=== PATIENT | male | born 1955 | race Caucasian/White ===

== ENCOUNTER 2020-05-16 11:02 | Outpatient (CLI) | payer MEDICARE, SELFPAY ==
--- NOTE | ~2020-05-16 | XR_ITS ---
XR scapula RT DATE: 05/16/2020 11:28 INDICATION: Recent fall, posterior shoulder pain, right arm tingling and pain TECHNIQUE: AP and lateral views of right scapula COMPARISON: None FINDINGS: There is diffuse osteopenia. No fracture or dislocation or bone destruction. Normal alignme nt at the acromioclavicular and glenohumeral joints. IMPRESSION: Osteopenia Reviewed, dictated and finalized at location A. IMPRESSION: Osteopenia
--- NOTE | ~2020-05-16 | XR_ITS ---
XR cervical spine min 6V DATE: 05/16/2020 11:28 INDICATION: Right arm tingling and pain TECHNIQUE: AP, open-mouth, bilateral oblique views. Lateral views in neutral, flexion and extension. COMPARISON: None FINDINGS: There is reversal of upper and mid cervical spine curvature. C1 and C2 are normally aligned and the odontoid process is intact. No fracture is evident. No prevert ebral soft tissue swelling. There is severe degenerative disc disease and approximately 1 mm retrolisthesis at C3-4; the retrolis thesis is stable in flexion, increased to 2 mm in extension. There is more prominent up to at least 3 mm retrolisthesis at C4-5 in neutral and extension, reduced to 1 mm in flexion. There is moderate loss of interspace height at C4-5. There is minimal anterolisthesis at C6-7. There is uncovertebral joint spurring, most prominent at C4-5. Degenerative change at the apophyseal joints. IMPRESSION: Extensive degenerative changes; no fracture Reviewed, dictated and finalized at location A.
--- NOTE | ~2020-05-16 | XR_ITS ---
XR shoulder RT min 2V DATE: 05/16/2020 11:28 INDICATION: Recent fall. Posterior right shoulder pain. Right arm tingling and pain. TECHNIQUE: 4 views COMPARISON: None FINDINGS: There is diffuse osteopenia. No fracture or dislocation, periosteal reaction or bone destru ction. No abnormal soft tissue calcification of the right shoulder. IMPRESSION: Osteopenia Reviewed, dictated and finalized at location A. IMPRESSION: Osteopenia
== END 2020-05-16 11:03 | disposition home or self-care (01) ==
LOC: ANHIMG 11:09
PROVIDERS: PCP Emergency Medicine; Visit Provider Emergency Medicine
DX: R20.2 Paresthesia of skin (principal); M85.811 Other specified disorders of bone density and structure, right shoulder
CPT/HCPCS: 72052; 73010; 73030

== ENCOUNTER 2021-09-24 09:08 | Outpatient (CLI) | payer MEDICARE, SELFPAY ==
--- NOTE | ~2021-09-24 | US_ITS ---
EXAMINATION: US carotid duplex BI DATE: 09/24/2021 10:29 INDICATION: Dizziness TECHNIQUE: Grayscale, color Doppler, and pulsed Doppler images of the cervical carotid arteries were obtained. The degree of vessel stenosis is placed in one of the following categories: normal, <50%, 5 0-69%, >=70% but less than near-occlusion, near-occlusion, or total occlusion. Note that percent sten osis relative to normal distal artery lumen diameter is indirectly measured from velocity measurement s as described by Jason, et al. Radiology 2003; 229:340-346. Notes: Normal: Peak systolic velocity <125 centimeters/sec and no plaque <50%. Peak systolic velocity <125 ( EDV <40; ICA/CCA PSV ratio <2.0; used these factors only a tandem lesions or low cardiac output or co ntralateral disease) 50-69 %: PSV 125-230 (EDV 40-100; ratio 2-4) >= 70% but less than near occlusion: PSV greater than 230 (EDV > 100; ratio> 4.0) Near Occlusion: PSV that is variable; markedly narrowed lumen Occlusion: Absent flow on color/spectral Doppler and no lumen on sharma scale. COMPARISON: None. FINDINGS: RIGHT: The right common carotid artery (CCA) peak systolic velocity (PSV) is 153 cm/s. The right internal ca rotid artery (ICA) PSV is 110 cm/s. The right ICA end-diastolic velocity (EDV) is 34 cm/s. The right ICA/CCA PSV ratio is 0.7. The external carotid artery (ECA) PSV is 90 cm/s. There is antegrade flow i n the right vertebral artery. LEFT: The left CCA PSV is 124 cm/s. The left ICA PSV is 91 cm/s. The left ICA EDV is 33 cm/s. The left ICA/ CCA PSV ratio is 0.7. The ECA PSV is 107 cm/s. The left vertebral artery is not well visualized for evaluation. IMPRESSION: 1. Less than 50% stenosis in the right internal carotid artery by sonographic criteria. 2. Less than 50% stenosis in the left internal carotid artery by sonographic criteria. Left vertebral artery not adequately visualized. Reviewed, dictated and finalized at location A. DERETTE ATTENDANT IMPRESSION: 1. Less than 50% stenosis in the right internal carotid artery by sonographic c riteria. 2. Less than 50% stenosis in the left internal carotid artery by sonographic cr iteria. Left vertebral artery not adequately visualized.
== END 2021-09-24 09:09 | disposition home or self-care (01) ==
LOC: ANHIMG 09:14
PROVIDERS: PCP Emergency Medicine; Visit Provider Emergency Medicine
DX: R42 Dizziness and giddiness (principal); I65.23 Occlusion and stenosis of bilateral carotid arteries
CPT/HCPCS: 93880

== ENCOUNTER 2021-10-07 13:58 | Outpatient (CLI) | payer MEDICARE, SELFPAY ==
--- NOTE | ~2021-10-07 | MR_ITS ---
EXAMINATION: MR brain/brain stem wo/w con DATE: 10/07/2021 15:18 INDICATION: Slurred speech. TECHNIQUE: Magnetic resonance imaging (MRI) of the brain and brainstem was performed without and with 10 mL MultiHance intravenous contrast. Sequences included sagittal and axial T1-weighted FSE, axial diffusion-weighted FS EPI, axial T2*-weighted GRE, axial T2-weighted FLAIR Propeller, and axial T2-we ighted Propeller. Postcontrast sequences included axial, sagittal, and coronal T1-weighted FSE. Appar ent diffusion coefficient (ADC) maps were created. COMPARISON: Brain MRI 11/10/2014 FINDINGS: There is chronic encephalomalacia in lateral aspect of left temporal lobe. There are scatte red areas of nonspecific increased T2-weighted signal intensity in the cerebral white matter. There i s no intracranial hemorrhage, acute infarction, or abnormal intracranial mass lesion. The ventricles are normal in size. There are likely changes of ocular lens replacement surgeries. There is mild muco oliver thickening in the ethmoid sinuses. The mastoid air cells are normal. IMPRESSION: 1. Chronic encephalomalacia in lateral aspect of left temporal lobe. 2. Worsened moderate nonspecific cerebral white matter disease, which likely represents chronic small vessel ischemic disease. Reviewed, dictated and finalized at location A. OMER EXPERIENCE LEADER IMPRESSION: 1. Chronic encephalomalacia in lateral aspect of left temporal lobe. 2. Worsened moderate nonspecific cerebral white matter disease, which likely re presents chronic small vessel ischemic disease.
[2021-10-07 14:44] LABS: Estimated Glomerular Filt Rate > 60
== END 2021-10-07 13:59 | disposition home or self-care (01) ==
PROVIDERS: PCP Emergency Medicine; Visit Provider Emergency Medicine
DX: R42 Dizziness and giddiness (principal); G93.89 Other specified disorders of brain; R90.82 White matter disease, unspecified
CPT/HCPCS: 70553; A9577

== ENCOUNTER 2023-09-07 09:04 | Day surgery (SDC) | payer MEDICARE, SELFPAY ==
[2023-09-02 09:15] VITALS: BMI 20.2
--- NOTE | 2023-09-07 07:27 | P.PNAN_ITS ---
Anes - Initial Pre Proc Eval Procedure: Operation Date: 09/07/23 14:00 Proposed Procedures p Esophagogastroduodenoscopy - Daniele Parham MD s Colonoscopy - Daniele Parhma MD Date/Time: 09/07/23 07:27 Surgeon: Daniele Parham MD Pre Op Diagnosis: Iron Deficiency Anemia Patient Data Age: 68 Gender: M Height: 1.6 m Weight: 52 kg Allergies Allergy/AdvReac Type Severity Reaction Status Date / Time No Known Allergies Allergy Verified 09/07/23 09:37 Home Medications Medication Instructions Recorded Confirmed Type gabapentin 100 mg capsule 100 mg PO BID 09/02/23 09/02/23 History omeprazole 20 mg capsule,delayed 20 mg PO DAILY #30 caps 09/07/23 09/07/23 Rx release Patient hx anesthesia problems: none Family hx anesthesia problems: none Results Review: All pre-operative results and documents have been reviewed as part of the pre- operative evaluation. [facility] Past Medical History Medical History (Updated 09/07/23 @ 13:52 by Tato Choi DO) Anemia Asbestosis GERD (gastroesophageal reflux disease) Hepatitis C History of tuberculosis Iron deficiency anemia TIA (transient ischemic attack) Social History Social History Smoking packs per day: 2 Smoking cigarettes per day: 40.0 Years smoked: 30 Smoking pack-years: 60.00 Smoking status: Former smoker Tobacco type: cigarettes Smoking end date: 10/05/99 Alcohol intake: former Substance use: never Substance use type: does not use Living arrangements: with friend(s) Spiritual care concerns: No Anes - Eval Final PreProcedure Day of Procedure 09/07/23 07:27 Patient weight: normal Heart: regular rate and rhythm Lungs: clear to auscultation and normal air movement Airway: Mallampati scale class II Neurological: alert and oriented Last oral intake: >/= 8 hours ASA classification: III Emergent: no Anesthetic plan: proceed Anesthesia type and monitoring: general GIVS and standard monitoring Results Review: All pre-operative results and documents have been reviewed as part of the pre- operative evaluation. Informed Consent: The patient's anesthetic plan and its attendant risks and benefits were discussed with the patient/family/POA. Questions were solicited and answers provided to the satisfaction of the patient/family/POA.
[2023-09-07 09:38] VITALS: BP 147/90; PULSE 95; RESP 16; TEMP 36.8; O2SAT 99
[2023-09-07] MEDS: LACTATED RINGERS 1,000 ML 150 ML IV CONT (09:45)
--- NOTE | 2023-09-07 10:47 | PM.HPGS ---
History of Present Illness History of Present Illness Consent: Risks, benefits, and alternatives have been discussed and questions answered. Patient agrees to proceed with procedure. Chief complaint: Iron Deficiency Anemia Narrative: Kevin Isabel is a 68 year old male with lamar, denies overt gib, he thinks that had colonoscopy 2 years ago Review of Systems Constitutional: Constitutional: Denies headache(s) and Denies weakness Eyes: Eyes: Denies blurry vision ENT: Reports Normal hearing present, Denies headache(s) and Denies neck pain Cardiovascular: Cardiovascular: Denies chest pain and Denies dyspnea Respiratory: Respiratory: Denies dyspnea Gastrointestinal: Gastrointestinal: Reports no additional gastrointestinal complaints Genitourinary: Genitourinary: Denies dysuria Musculoskeletal: Musculoskeletal: Denies neck pain Integumentary/Breasts: Skin/Breast: Denies dry skin Neurologic: Reports Normal hearing present, Denies headache(s) and Denies weakness Psychiatric: Psychiatric: Denies anxiety Endocrine: Endocrine: Denies change in body appearance Hematologic/Lymphatic: Hematologic/Lymphatic: Denies easy bleeding Allergic/Immunologic: Allergic/Immunologic: Denies urticaria PMF Past Medical History Medical History (Updated 09/07/23 @ 10:47 by Daniele Parham MD) Anemia Asbestosis GERD (gastroesophageal reflux disease) History of tuberculosis Iron deficiency anemia TIA (transient ischemic attack) Social History Social History Smoking packs per day: 2 Smoking cigarettes per day: 40.0 Years smoked: 30 Smoking pack-years: 60.00 Smoking status: Former smoker Tobacco type: cigarettes Smoking end date: 10/05/99 Alcohol intake: former Substance use: never Substance use type: does not use Living arrangements: with friend(s) Spiritual care concerns: No Meds Home Medications and Allergies Home Medications Medication Instructions Recorded Confirmed Type omeprazole 20 mg capsule,delayed 20 mg PO DAILY 08/26/23 09/02/23 History release gabapentin 100 mg capsule 100 mg PO BID 09/02/23 09/02/23 History Allergies Allergy/AdvReac Type Severity Reaction Status Date / Time No Known Allergies Allergy Verified 09/07/23 09:37 Vital Signs Vital Signs - 24 hr 09/07/23 09:38 Temperature 98.3 F Pulse Rate 95 Respiratory Rate 16 Blood Pressure 147/90 H Pulse Oximetry 99 Oxygen Delivery Room Air Exam Const: General: comfortable and no acute distress HENMT: Face/Nose/Sinus: Normal nares present Eyes: General: appearance normal, both eyes and all related structures Neck: Neck: no JVD Resp: Auscultation: clear to auscultation bilaterally Cardio: Rate: regular rate Rhythm: regular rhythm GI: Inspection: non-distended GI Palp: Yes Soft to palpation Skin: General skin exam: normal color Neuro: General: gait normal Speech: normal speech Extrem: General: normal to inspection Psych: Mental Status: mental status grossly normal Assessment and Plan Assessment and plan (1) Iron deficiency anemia: Code(s): D50.9 - Iron deficiency anemia, unspecified Status: Acute Assessment and Plan: egd and colonoscopy
[2023-09-07 11:21] VITALS: BP 87/54; PULSE 62; RESP 16; O2SAT 100
[2023-09-07 11:30] VITALS: BP 96/63; PULSE 62; RESP 16; O2SAT 100
[2023-09-07 11:40] VITALS: BP 104/67; PULSE 64; RESP 16; O2SAT 100
[2023-09-07 11:50] VITALS: BP 115/70; PULSE 64; RESP 16; O2SAT 100
--- NOTE | 2023-09-07 13:52 | WPDANESPN ---
Anes - Prog Note Post-Op Date/Time: 09/07/23 13:52 Cardiovascular status: normal Respiratory status: normal Airway patency: baseline Mental status: baseline Post-Op hydration status: normal Vital Signs: Last Vital Signs Temp 36.8 C 09/07/23 09:38 Pulse 64 09/07/23 11:50 Resp 16 09/07/23 11:50 BP 115/70 09/07/23 11:50 Pulse Ox 100 09/07/23 11:50 O2 Del Method Room Air 09/07/23 11:50 O2 Flow Rate 2 09/07/23 11:30 Pain Score (VAS): 0 I/O: Intake & Output 09/06/23 09/07/23 09/07/23 23:59 07:59 15:59 Intake Total 400 Balance 400 Post-procedural complaints: none Patient Feedback: Patient satisfied with anesthetic care. Other Findings: Patient vital signs back to baseline. Patient denies nausea and vomiting. Patient's pain under control. Patient OK for discharge.
== END 2023-09-07 12:10 | disposition home or self-care (01) ==
PROVIDERS: PCP Emergency Medicine; Visit Provider Internal Medicine Gastroenterology
PROC: 0DJ08ZZ Inspection of Upper Intestinal Tract, Via Natural or Artificial Opening Endoscopic (ICD-10-PCS; CPT 43235; principal; 2023-09-07 14:00)
PROC: 0DJD8ZZ Inspection of Lower Intestinal Tract, Via Natural or Artificial Opening Endoscopic (ICD-10-PCS; CPT 45378; 2023-09-07 14:00)
DX: D50.9 Iron deficiency anemia, unspecified (principal); K57.30 Diverticulosis of large intestine without perforation or abscess without bleeding; K64.8 Other hemorrhoids; K29.70 Gastritis, unspecified, without bleeding; K44.9 Diaphragmatic hernia without obstruction or gangrene
CPT/HCPCS: 45378; 43239

== ENCOUNTER 2023-09-08 10:59 | Outpatient (NON) | payer MEDICARE, SELFPAY | END 2023-09-08 11:00 | disposition home or self-care (01) | LOC: ANHLAB 11:03 | PROVIDERS: PCP Emergency Medicine; Visit Provider Internal Medicine Gastroenterology | DX: D50.9 Iron deficiency anemia, unspecified (principal); K21.9 Gastro-esophageal reflux disease without esophagitis | CPT/HCPCS: 88305 ==

== ENCOUNTER 2023-12-29 08:55 | Outpatient (CLI) | payer MEDICARE, SELFPAY ==
--- NOTE | ~2023-12-29 | CT_ITS ---
EXAMINATION: CT abdomen pelvis wo/w con DATE: 12/29/2023 09:42 INDICATION: Hematuria. TECHNIQUE: Computed tomography (CT) of the abdomen and pelvis was performed without and with intraven ous contrast using a total of 130 mL Omnipaque-350 intravenous contrast with a double-bolus technique for simultaneous opacification of the renal parenchyma and renal collecting system. Automated exposu re control and iterative reconstruction technique were employed. The dose-length product was 488.98 m Gy-cm. COMPARISON: CT abdomen and pelvis 03/26/2019 FINDINGS: The visualized portions of the lung bases demonstrate mild atelectasis. Emphysema is noted. No pleural effusion. The heart size is normal. There are coronary artery calcifications. No pericard ial effusion. There is a small sliding hiatal hernia. The liver, gallbladder, spleen, pancreas, adren al glands, and right kidney are normal. There are cysts in left kidney measuring up to 4.5 cm. The ur eters are well opacified and are normal. There are bilateral inguinal hernias containing fat. There i s diverticulosis of the colon without evidence of diverticulitis. There are no dilated loops of bowel . There is calcified atherosclerosis of the aorta and many of the other arteries. There are no pathol ogically enlarged lymph nodes. There is no free intraperitoneal fluid. There is mild thoracic and lum bar spondylosis. IMPRESSION: 1. No etiology for hematuria. Reviewed, dictated and finalized at location A.
[2023-12-29 09:20] LABS: Estimated Glomerular Filt Rate > 60
== END 2023-12-29 08:56 ==
LOC: GOSHIMG 08:56
PROVIDERS: PCP Emergency Medicine; Visit Provider Urology
DX: R31.29 Other microscopic hematuria (principal)
CPT/HCPCS: 74178; Q9967

== ENCOUNTER 2024-12-09 06:37 | Outpatient (CLI) | payer MEDICARE, SELFPAY ==
--- NOTE | ~2024-12-09 | CT_ITS ---
EXAMINATION: CT abdomen pelvis w con DATE: 12/09/2024 07:15 INDICATION: Abdominal distention. TECHNIQUE: Computed tomography (CT) of the abdomen and pelvis was performed with 100 mL Omnipaque 350 intravenous contrast. Automated exposure control and iterative reconstruction technique were employe d. The dose-length product was 209.46 mGy-cm. COMPARISON: CT abdomen and pelvis 12/29/2023 FINDINGS: The visualized portions of the lung bases demonstrate emphysema and mild atelectasis. No pl eural effusion. The heart size is normal. There are coronary artery calcifications. No pericardial ef fusion. There is a small sliding hiatal hernia. The liver, gallbladder, spleen, pancreas, adrenal gla nds, and right kidney are normal. There are cysts in left kidney measuring up to 5.0 cm. There is a r ight inguinal hernia containing fat and a portion of the bladder. There is a left inguinal hernia con taining nonobstructed sigmoid colon. There is diverticulosis of the colon without evidence of diverti culitis. The appendix is normal. There are no pathologically enlarged lymph nodes. There is no free i ntraperitoneal fluid. There is moderate lumbar spondylosis. IMPRESSION: 1. Right inguinal hernia containing fat and a portion of the bladder. 2. Left inguinal hernia containing nonobstructed sigmoid colon. Reviewed, dictated and finalized at location A. [facility]
--- OUTSIDE RECORDS SUMMARY | 2024-12-09 06:40 | XMS_ITS | Clinical Summary ---
Author Organization [facility] [address] [place] [id number] Care Team Providers Care Jr. Systems Administrator Name Role Phone Rachid Baca MD Primary Care Provider + [phone] Allergies No known active allergies Medications acetaminophen (TYLENOL) 325 mg tabletIndicatio ns:Pain Take 2 tablets (650 mg total) by mouth every 6 (six) hours as needed for pain 90 tablet 0 Active docusate sodium (COLACE) 100 mg capsuleIndicati ons:constipatio n Take 1 capsule (100 mg total) by mouth 2 (two) times a day as needed for constipation 60 capsule 0 Active Active Problems Problem Noted Date Diagnosed Date Stricture of anterior urethra in male 12/01/2019 Overview (12/01/2019): Added automatically from request for surgery [id number] Bladder mass 05/19/2019 Overview (05/19/2019): Added automatically from request for surgery [id number] Immunizations Immunization Administration Dates Next Due Influenza, Trivalent, High D ose, Split, Preservative Free, Intramuscular 12/20/2019 Surgical History Surgery Date Site/Laterality Comments HAND SURGERY Medical History Medical History Date Comments Back pain Hypertension Peptic ulceration Hepatitis C carrier (HCC) Family History Medical History Relation Name Comments Cancer Father Anesthesia problems Neg Hx Relation Name Status Comments Father Social History Tobacco Use Types Packs/Day Years Used Date Smoking Tobacco: Former Cigarettes Q uit: 2015 Smokeless Tobacco: Never Comments:history of 3ppd Alcohol Use Standard Drinks/Week Comments Never 0 (1 standard drink = 0.6 oz pur e alcohol) AUDIT-C Answer Date Recorded Frequency of Alcohol Consumption Never 05/18/2019 Average Number of Drinks Not on file 019 Frequency of Binge Drinking Not on file 05/05 Sex and Gender Information Value Date Recorded Sex Assigned at Not on file 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 Gender Identity Not on file Sexual Orientation Not on file Obstetrics History Last Filed Vital Signs Vital Sign Reading Time Taken Comments Blood Pressure 152/81 12/20/2019 11:05 AM CDT Pulse 70 12/20/2019 11:05 AM CDT Temperature 36.5 C (97.7 F) 12/20/2019 11:05 AM CDT Respiratory Rate 18 12/20/2019 11:05 AM CDT Oxygen Saturation 97% 12/20/2019 11:05 AM CDT Inhaled Oxygen Concentration - - Weight 47.6 kg (105 lb) 12/19/2019 2:35 PM CDT Height 160 cm (5' 3 ) 12/19/2019 2:35 PM CDT Body Mass Index 18.6 12/19/2019 2:35 PM CDT Plan of Treatment Not on file Insurance MEDICARE [facility] Address: [address] [address] [place] [address] [facility] Address: [address] [address] [place] [address] Advance Directives For more information, please contact: [phone] * Full Code (Latest Code Status on File) Date Activated Date Inactivated Comments 12/19/2019 2:33 PM 12/20/2019 6:35 PM Care Teams Jr. Systems Administrator Relationship Specialty Start Date End Date Rachid Baca MD [address] [place] [address] PCP - General Family Medicine 11/14/19
--- OUTSIDE RECORDS SUMMARY | 2024-12-09 06:40 | XMS_ITS | Patient Health Summary ---
Author Organization [facility] Address [address] [facility] [place] [address] Care Team Providers Care Tire Maintenance Technician Name Role Phone Rachid Baca MD Primary Care Provider [phone] Note from [facility],non-owned Affiliates and Associated Physician Practices is amultiple site organization consisting of ambulatory clinics and hospital sitesin [place], [place], [place] and [place]. This disclosure is being madepursuant to the Care Everywhere program and may not contain all information available regarding this patient. Last updated 18.[facility] Allergies No known active allergies Medications * Be aware that medications may not be up to date on this document. Alwaysverify current medications with the patient. * acetaminophen (TYLENOL) 500 MG tablet(Started 11/09/2017) Take 500 mg by mouth q6h PRN (Pain). Active Problems Problem Noted Date Diagnosed Date Other acute postprocedural pain 11/20/2017 Other extraarticular fractur e of lower end of right radius, subsequent encounter for closed fracture with malunion 11/20/2017 Closed fracture of lower end of right radius Other hereditary and idiopathic neuropathies 04/2017 Social History Tobacco Use Types Packs/Day Years Used Date Smoking Tobacco: Former Smokeless Tobacco: Never Alcohol Use Standard Drinks/Week Comments No 0 (1 standard drink = 0.6 oz pur e alcohol) Sex and Gender Information Value Date Recorded Sex Assigned at Not on file Gender Identity Not on file Sexual Orientation Not on file Last Filed Vital Signs Vital Sign Reading Time Taken Comments Blood Pressure 135/73 11/20/2017 12:45 PM EAR NOSE THROAT SURGEON Pulse 69 11/20/2017 12:45 PM EAR NOSE THROAT SURGEON Temperature 36.7 C (98 F) 11/20/2017 12:10 PM EAR NOSE THROAT SURGEON Respiratory Rate 16 11/20/2017 12:45 PM EAR NOSE THROAT SURGEON Oxygen Saturation 95% 11/20/2017 12:45 PM EAR NOSE THROAT SURGEON Inhaled Oxygen Concentration - - Weight 47.6 kg (105 lb) 12/03/2017 9:33 AM EAR NOSE THROAT SURGEON Height 157.5 cm (5' 2 ) 12/03/2017 9:33 AM EAR NOSE THROAT SURGEON Body Mass Index 19.2 12/03/2017 9:33 AM EAR NOSE THROAT SURGEON Procedures * XR WRIST RIGHT 3VW OR MORE(Performed 02/25/2018) Performed for Follow up * XR HAND RIGHT 3VW OR MORE(Performed 12/31/2017) * XR WRIST RIGHT 3VW OR MORE(Performed 12/03/2017) * TYPE + SCREEN PANEL(Performed 11/20/2017) * BLOOD GASES ARTERIAL(Performed 11/20/2017) * XR WRIST RIGHT 3VW OR MORE(Performed 11/05/2017) * XR SHOULDER RIGHT 2VW OR MORE(Performed 04/14/2017) * XR WRIST RIGHT 3VW OR MORE(Performed 04/09/2017) * XR WRIST RIGHT 3VW OR MORE(Performed 01/15/2017) * XR WRIST RIGHT 3VW OR MORE(Performed 10/16/2016) * XR WRIST RIGHT 3VW OR MORE(Performed 07/03/2016) Results * XR WRIST RIGHT 3VW OR MORE (02/25/2018 8:41 AM CDT) Only the most recent of7 resultswithin the time period is included. Anatomical Region Laterality Modality Wrist / Hand Radiographic Mignon ging 02/25/2018 8:49 AM CDT Impressions 02/25/2018 8:50 AM CDT IMPRESSION: Distal radial osteotomy with plate and screws, unchanged in alignment. This report was electronically signed by TATO KELLER MD on 02/25/2018 8:50 AM . Narrative 02/25/2018 8:50 AM CDT Exam: XR WRIST RIGHT 3VW OR MORE History: Z09: Follow up Comparison: 12/03/2017. Findings: A splint has been removed. There has been distal radial osteotomy with a volar plate and screws for treatment of a malunited fracture. The hardware is intact. The osseous alignment is unchanged and the osteotomy site appears healing. 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 The bones are osteopenic. Mild soft tissue swelling is noted. Mild chronic deformity of the fourth and fifth metacarpals is noted. Procedure Note Tato Keller MD - 02/25/2018 Exam: XR WRIST RIGHT 3VW OR MORE History: Z09: Follow up Comparison: 12/03/2017. Findings: A splint has been removed. There has been distal radial osteotomy with a volar plate and screws for treatment of a malunited fracture. Thehardware is intact. The osseous alignment is unchanged and the osteotomy site appears healing. 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 The bones are osteopenic. Mild soft tissue swelling is noted. Mild chronic deformity of the fourth and fifth metacarpals is noted. IMPRESSION: Distal radial osteotomy with plate and screws, unchanged in alignment. This report was electronically signed by TATO KELLER MD on02/25/2018 8:50 AM . Rehan Soto MD DIAGNOSTIC IMAGING [facility] * XR HAND RIGHT 3VW OR MORE (12/31/2017 8:40 AM CDT) Anatomical Region Laterality Modality Wrist / Hand Other Impressions 12/31/2017 9:06 AM CDT IMPRESSION: Distal radial osteotomy with a plate and screws, unchanged in alignment. This report was electronically signed by TATO KELLER MD on 12/31/2017 9:06 AM . Narrative 12/31/2017 9:06 AM CDT Exam: XR HAND RIGHT 3+ VW History: follow up Comparison: 12/03/2017 Findings: There are surgical changes of distal radial osteotomy with a plate and screws for treatment of a prior malunited fracture. The hardware is intact and the osseous alignment is unchanged. There is severe joint space narrowing between the radius and scaphoid, with subchondral sclerosis. There is mild to moderate degenerative change elsewhere in the wrist. The bones are mildly osteopenic. A splint has been removed. There is chronic deformity of the fourth and fifth metacarpals. Procedure Note Tato Keller MD - 01/09/2018 Exam: XR HAND RIGHT 3+ VW History: follow up Comparison: 12/03/2017 Findings: There are surgical changes of distal radial osteotomy with a plate andscrews for treatment of a prior malunited fracture. The hardware is intactand the osseous alignment is unchanged. There is severe joint spacenarrowing between the radius and scaphoid, with subchondral sclerosis. There is mild to moderatedegenerative change elsewhere in the wrist. The bones are mildlyosteopenic. A splint has been removed. There is chronic deformity of thefourth and fifth metacarpals. IMPRESSION IMPRESSION: Distal radial osteotomy with a plate and screws, unchanged in alignment. This report was electronically signed by TATO KELLER MD on 12/31/20179:06 AM . Rehan Soto MD DIAGNOSTIC IMAGING O [facility] * TYPE + SCREEN PANEL (11/20/2017 7:35 AM EAR NOSE THROAT SURGEON) Typem A POS [facility] Antibody Screen NEG [facility] Blood specimen (specimen) 11/20/2017 7:35 AM EAR NOSE THROAT SURGEON 11/20/2017 7:40 AM EAR NOSE THROAT SURGEON Rehan Soto MD LAB - BLOOD BANK ORD ERABLES [facility] [address] * BLOOD GASES ART (11/20/2017 7:33 AM EAR NOSE THROAT SURGEON) EPO Potassium POCT 3.7 3.5 - 4.5 mmol/L [facility] (BEAKER) Comment: Sample Type: Venous Experimental Preflight Mechanic: JENNIFER MCKEON 11/20/2017 7:33 AM EAR NOSE THROAT SURGEON Rehan Soto MD LAB - BLOOD GASES OR DERABLES [facility] ([facility]) * XR SHOULDER RIGHT 2VW OR MORE (04/14/2017 1:31 PM CDT) Anatomical Region Laterality Modality Upper Extremity Other Impressions 04/14/2017 2:14 PM CDT IMPRESSION: No acute osseous abnormality or evidence of arthritis. Dictated by Sherly Spicer M.D. ([employer]) Dr. BEL Argueta M.D. have personally reviewed and interpreted this examination/study. This report was electronically signed by BEL PITTMAN M.D. on 04/14/2017 2:14 PM . Narrative 04/14/2017 2:14 PM CDT EXAMINATION: XR SHOULDER RIGHT 2 VW MIN DATE: 04/14/2017 1:32 PM HISTORY: Pain COMPARISON: No prior study is available for comparison. FINDINGS: The osseous structures are intact and well aligned without evidence of acute fracture or dislocation. The acromioclavicular and glenohumeral joints are preserved.There is no significant soft tissue swelling. No radiopaque foreign bodies are visible. Procedure Note Bel Pittman MD - 01/01/2018 EXAMINATION: XR SHOULDER RIGHT 2 VW MIN DATE: 04/14/2017 1:32 PM HISTORY: Pain COMPARISON: No prior study is available for comparison. FINDINGS: The osseous structures are intact and well aligned without evidence ofacute fracture or dislocation. The acromioclavicular and glenohumeraljoints are preserved.There is no significant soft tissue swelling. Noradiopaque foreign bodies are visible. IMPRESSION IMPRESSION: No acute osseous abnormality or evidence of arthritis. Dictated by Sherly Spicer M.D. ([employer]) Dr. BEL Argueta M.D. have personally reviewed and interpreted thisexamination/study. This report was electronically signed by BEL PITTMAN M.D. on 04/14/20172:14 PM . Tigre Lawrence MD DIAGNOSTIC IMAGING [facility] Care Teams Tire Maintenance Technician Relationship Specialty Start Date End Date Rachid Baca MD [address] [facility] [address] [place] [address] PCP - General 01/15/17
--- OUTSIDE RECORDS SUMMARY | 2024-12-09 06:40 | XMS_ITS | Clinical Summary ---
Author Organization [facility] Address [address], [facility] [address] [place] [address] Phone Care Team Providers Care Er Physician Name Role Phone Baca Rachid Primary Care Provider [phone] Alexandro Flor MD Unavailable [phone] Allergies No known active allergies Medications omeprazole (PriLOSEC) 20 MG CAPSULE DELAYED RELEASE Take 20 mg by mouth daily. Active gabapentin (NEURONTIN) 100 MG Capsule Take 100 mg by mouth 2 times daily. 08/31/2023 Active hydrALAZINE 10 MG Tablet TAKE 1 TABLET BY MOUTH THREE TIMES DAILY WITH FOOD 12/15/2023 Active Active Problems Problem Noted Date Diagnosed Date Iron deficiency anemia refractory to iron therap y 12/20/2021 Encounters Date Type Department Care Team Description 09/26/2024 9:45 AM PROOF OPERATOR [facility] Visit [facility] [address] [address] Pamela Melendrez, CLINICAL TRAINING SPECIALIST, MEDICAL RECEPTIONIST Iron deficiency anemia refractory to iron therapy (Primary Dx) 09/26/2024 Travel from Last 3 Months Immunizations Immunization Administration Dates Next Due Covid-19, Mrna, Lnp-s, Pf, 1 00 Mcg Or 50 Mcg Dose (MODERNA) 08/14/2021,12/19/2020,11/14/2020 Influenza, high-dose, trivalent, PF 12/20/2019 TD VACCINE 03/18/2016 Family History Medical History Relation Name Comments Cancer Father Stroke Mother Relation Name Status Comments Father Mother Social History Tobacco Use Types Packs/Day Years Used Date Smoking Tobacco: Never Smokeless Tobacco: Never Tobacco Cessation:Counseling Given: Not Answered Alcohol Use Standard Drinks/Week Comments Never 0 (1 standard drink = 0.6 oz pur e alcohol) PHQ-2 Answer Date Recorded Total Score - Questions 1-9 0 01/04 Sex and Gender Information Value Date Recorded Sex Assigned at Not on file Legal Sex Male 8:43 AM PROOF OPERATOR Gender Identity Not on file Sexual Orientation Not on file Last Filed Vital Signs Vital Sign Reading Time Taken Comments Blood Pressure 152/80 09/26/2024 10:17 AM PROOF OPERATOR Pulse 61 09/26/2024 10:17 AM PROOF OPERATOR Temperature 36.6 C (97.8 F) 09/26/2024 10:17 AM PROOF OPERATOR Respiratory Rate 18 09/26/2024 10:17 AM PROOF OPERATOR Oxygen Saturation 99% 09/26/2024 10:17 AM PROOF OPERATOR Inhaled Oxygen Concentration - - Weight 53.5 kg (118 lb) 09/26/2024 10:17 AM PROOF OPERATOR Height 157.5 cm (5' 2 ) 09/26/2024 10:17 AM PROOF OPERATOR Body Mass Index 21.58 09/26/2024 10:17 AM PROOF OPERATOR Plan of Treatment Upcoming Encounters Date Type Department Care Team (Late st Contact Info) Description 04/03/2025 9:15 AM CDT [facility] [address] [address] Alexandro Flor MD [address] [address] [place] [address] Health Maintenance Due Date Last Done Comments Hepatitis C Virus (HCV) Screening 1955 TdaP Immunization 1955 Colonoscopy 1998 Colorectal Cancer Screening 1998 Cologuard 2003 Immunochemical Fecal Occult Blood 2003 Pneumococcal Immunization (50+ years) (1 of 1 - PCV) 2003 Zoster Immunization (1 of 2) 2003 Influenza Immunization (#1) 2024 12/20/2019 SARS-COV-2 Immunization ( season) 2024 01/29/2022, 08/14/2021, 12/19/2020, Additional history exists Respiratory Syncytial Virus (RSV) Immunization (Adult) (1 - 1-dose 75+ series) 2028 DTaP/Tdap/Td Immunization Discontinued 03/18/2016 Hepatitis B Immunization Aged Out No longer eligible based on patient's age to complete this topic Meningococcal Immunization (ACWY) Aged Out No longer eligible based on patient's age to complete this topic Rotavirus Immunization Aged Out No lo nger eligible based on patient's age to complete this topic Procedures Procedure Name Priority Date/Time Associated Diagnosis Comments CBC WITH AUTO DIFF OH Routine 09/26/2024 11:12 AM PROOF OPERATOR CMP (COMPREHENSIVE METABOLIC PANEL) Routine 09/26/2024 11:12 AM PROOF OPERATOR Iron deficiency anemia refractory to iron therapy FERRITIN Routine 09/26/2024 11:12 AM PROOF OPERATOR Iron deficiency anemia refractory to iron therapy IRON W/ IRON BINDING CAPACITY OH Routine 09/26/2024 11:12 AM PROOF OPERATOR Iron deficiency anemia refractory to iron therapy from Last 3 Months Results * IRON W/ IRON BINDING CAPACITY OH (09/26/2024 11:12 AM PROOF OPERATOR) IRON 130 50 - 212 ug/dL CANCER TRACTOR MECHANIC [facility] UIBC 232 155 - 355 ug/dL [facility] TIBC 362 261 - 478 ug/dl CANCER TRACTOR MECHANIC [facility] % Saturation 36 20 - 50 % CANCER TRACTOR MECHANIC [facility] 09/26/2024 11:1 2 AM PROOF OPERATOR Narrative CANCER TRACTOR MECHAN[facility] - 09/26/2024 12:03 PM PROOF OPERATOR Release to patient->Immediate us Pamela Melendrez APRN, MEDICAL RECEPTIONIST LAB SEND OUTS F inal Result CANCER TRACTOR MECHANIC [facility] [place] [address], [place] [phone] * (ABNORMAL) CBC WITH AUTO DIFF OH (09/26/2024 11:12 AM PROOF OPERATOR) WBC 7.0 4.0 - 10.0 10*3/uL CANCER TRACTOR MECHANIC [facility] HGB 14.2 13.7 - 17.5 g/dL CANCER TRACTOR MECHANIC [facility] HCT 42.0 40.1 - 51.0 % CANCER TRACTOR MECHANIC [facility] PLT 245 163 - 369 10*3/uL CANCER TRACTOR MECHANIC [facility] MPV 11.1 9.4 - 12.4 fL [facility]CER TRACTOR MECHANIC [facility] RBC 4.63 4.63 - 6.08 10*6/uL CANCER TRACTOR MECHANIC [facility] MCV 91 79 - 95 fL CANCER TRACTOR MECHANIC [facility] MCH 30.7 25.6 - 32.2 pg CANCER TRACTOR MECHANIC [facility] MCHC 33.8 32.2 - 36.5 g/dL CANCER TRACTOR MECHANIC [facility] RDW 13.3 11.6 - 14.4 % CANCER TRACTOR MECHANIC [facility] Neutrophils % 59.4 36.0 - 66.0 % CANCER TRACTOR MECHANIC [facility] Lymphocytes % 16.7(L) 19.0 - 40.0 % [facility]ER TRACTOR MECHANIC [facility] Monocytes % 18.4(H) 4.1 - 12.1 % CANCER TRACTOR MECHANIC [facility] Eosinophils % 2.6 0.0 - 3.5 % [facility]CER TRACTOR MECHANIC [facility] Basophils % 2.3(H) 0.0 - 1.0 % CANCER TRACTOR MECHANIC [facility] Absolute Neutrophils 4.2 1.4 - 6.6 10*3/uL [facility] Absolute Lymphocytes 1.2 0.8 - 4.0 10*3/uL [facility] Absolute Monocytes 1.3(H) 0.2 - 1.2 10*3/uL [facility] Absolute Eosinophils 0.2 0.0 - 0.4 10*3/uL CANCER TRACTOR MECHANIC [facility] Absolute Basophils 0.2(H) 0.0 - 0.1 10*3/uL [facility] TRACTOR MECH[facility] 09/26/2024 11:1 2 AM PROOF OPERATOR us Pamela Melendrez CLINICAL TRAINING SPECIALIST, MEDICAL RECEPTIONIST LAB SEND OUTS F inal Result CANCER TRACTOR MECHANIC [facility] [address] [place] [address], * FERRITIN (09/26/2024 11:12 AM PROOF OPERATOR) Ferritin 104 24 - 336 ng/mL [facility] Blood 09/26/2024 11:1 2 AM PROOF OPERATOR Narrative CANCER TRACTOR MECHANIC [facility] - 09/27/2024 1:23 PM PROOF OPERATOR Release to patient->Immediate Pamela Melendrez CLINICAL TRAINING SPECIALIST, MEDICAL RECEPTIONIST CHEMISTRY ORDERAB LES Final Result CANCER TRACTOR MECHANIC [facility] [address] [place] [address], * (ABNORMAL) CMP (COMPREHENSIVE METABOLIC PANEL) (09/26/2024 11:12 AM PROOF OPERATOR) Glucose 103 70 - 105 mg/dL [facility] Blood Urea Nitrogen 14 7 - 25 mg/dL [facility] Creatinine 0.9 0.7 - 1.3 mg/dL [facility] Sodium 138 136 - 145 mEq/L [facility] Potassium 4.9 3.5 - 5.1 mEq/L [facility] Chloride 98 98 - 107 mEq/L [facility] Bicarbonate 31 21 - 31 mEq/L [facility] Total Bilirubin 1.3(H) 0.3 - 1.0 mg/dL [facility] Alk. Phosphatase 40 34 - 104 U/L [facility] Aspartate Aminotransferase 17 13 - 39 U/L [facility] Alanine Aminotransferase 11 7 - 52 U/L [facility] Total Protein 7.6 6.4 - 8.9 g/dL [facility] Albumin 4.5 3.5 - 5.7 g/dL [facility] Calcium 9.9 8.6 - 10.3 mg/dL [facility] Anion Gap 13.9 7.0 - 15.0 mEq/L [facility] Globulin 3.1 2.0 - 3.5 g/dL CANCER TRACTOR MECHANIC [facility] EGFR 91 >60 ml/min/1. 73m2 CANCER TRACTOR MECHANIC [facility] Comment: This eGFR is calculated using 2020 CKD-EPI Creatinine equation without race modifier based on the NKF-ASN task force recommendations Blood 09/26/2024 11:1 2 AM PROOF OPERATOR Narrative CANCER TRACTOR MECHAN[facility] - 09/26/2024 12:03 PM PROOF OPERATOR Release to patient->Immediate IS THE PATIENT REQUIRED TO BE FASTING FOR 8 HOURS?->No us Pamela Melendrez CLINICAL TRAINING SPECIALIST, MEDICAL RECEPTIONIST CHEMISTRY ORDERAB LES Final Result CANCER TRACTOR MECHANIC [facility] [address] [place] [address], from Last 3 Months Insurance [facility] Care Teams Er Physician Relationship Specialty Start Date End Date Rachid Baca [address] [place] [address] PCP - General Family Medicine 10/07/19 Alexandro Flor MD [address] [place] [phone] Consulting Physician Oncology 11/14/21
--- OUTSIDE RECORDS SUMMARY | 2024-12-09 06:40 | XMS_ITS | Clinical Summary ---
Author Organization [facility] Address [address] [place] [address] Care Team Providers Care Resume Specialist Name Role Phone Rachid Baca MD Primary Care Provider [phone] Source Comments [facility],non-owned Affiliates and Associated Physician Practices is amultiple site organization consisting of ambulatory clinics and hospital sitesin [place], [place], [place] and [place]. This disclosure is being madepursuant to the Care Everywhere program and may not contain all information available regarding this patient. Last updated [email or web address] Allergies No known active allergies Medications * Be aware that medications may not be up to date on this document. Alwaysverify current medications with the patient. Medication Sig Dispensed Refills Start Date End Date Status acetaminophen (TYLENOL) 500 MG tablet Take 500 mg by mouth q6h PRN (Pain). 11/09/2017 Active Active Problems Problem Noted Date Diagnosed [...] Comments Blood Pressure 135/73 11/20/2017 12:45 PM ADMINISTRATIVE AND PROGRAM SPECIALIST Pulse 69 11/20/2017 12:45 PM ADMINISTRATIVE AND PROGRAM SPECIALIST Temperature 36.7 C (98 F) 11/20/2017 12:10 PM ADMINISTRATIVE AND PROGRAM SPECIALIST Respiratory Rate 16 11/20/2017 12:45 PM ADMINISTRATIVE AND PROGRAM SPECIALIST Oxygen Saturation 95% 11/20/2017 12:45 PM ADMINISTRATIVE AND PROGRAM SPECIALIST Inhaled Oxygen Concentration - - Weight 47.6 kg (105 lb) 12/03/2017 9:33 AM ADMINISTRATIVE AND PROGRAM SPECIALIST Height 157.5 cm (5' 2 ) 12/03/2017 9:33 AM ADMINISTRATIVE AND PROGRAM SPECIALIST Body Mass Index 19.2 12/03/2017 9:33 AM ADMINISTRATIVE AND PROGRAM SPECIALIST Plan of Treatment Health Maintenance Due Date Last Done Comments COLOGUARD (AGES 45-75) - COL ON CA SCREENING 1953 COLON MONITORING 1953 COLONOSCOPY - COLON CA SCREENING 1953 CT COLONOGRAPHY - COLON CA SCREENING 1955 Colorectal Cancer Screening 1953 FIT - COLON CA SCREENING 1953 FLEX SIG - COLON CA SCREENING 1953 LIPID TESTING 1953 HEPATITIS C SCREENING 04/20/1971 DTAP/TDAP/TD VACCINES (1 - Tdap) 1972 PNEUMOCOCCAL VACCINE 50+ (1 of 1 - PCV) 2003 ZOSTER VACCINE (1 of 2) 2003 HEPATITIS B VACCINE (1 of 3 - Risk 3-dose series) 2013 AAA SCREENING 2018 COVID-19 VACCINE ( - 2023-2 5 season) 2024 INFLUENZA VACCINE (#1) 2024 DEPRESSION SCREENING 10/05/2024 MEDICARE AWV CALENDAR YEAR 2024 Respiratory Syncytial Virus (RSV) Vaccine Pt: or over 60 yrs (1 - 1-dose 75+ series) 2028 HIB VACCINE Aged Out No longer eligi ble based on patient's age to complete this topic HPV VACCINE Aged Out No longer eligi ble based on patient's age to complete this topic MENINGOCOCCAL (Group B) VACCINE Aged Out No longer eligible based on patient's age to complete this topic MENINGOCOCCAL VACCINE Aged Out No kermit katherin eligible based on patient's age to complete this topic Care Teams Resume Specialist Relationship Specialty Start Date End Date Rachid Baca MD [address] [place] [address] PCP - General 01/15/17
--- OUTSIDE RECORDS SUMMARY | 2024-12-09 06:40 | XMS_ITS | Referral Summary ---
Author Organization [facility] Address [address] [place] [address] Care Team Providers Care Document Imaging Manager Name Role Phone Rachid Baca MD Primary Care Provider [phone] Source Comments [facility],non-owned Affiliates and Associated Physician Practices is amultiple site organization consisting of ambulatory clinics and hospital sitesin [place], [place], [place] and [place]. This disclosure is being madepursuant to the Care Everywhere program and may not contain all information available regarding this patient. Last updated [email or web address] [facility] Allergies No known active allergies Medications * [...] Comments Blood Pressure 135/73 11/20/2017 12:45 PM ELECTRICIAN HELPER Pulse 69 11/20/2017 12:45 PM ELECTRICIAN HELPER Temperature 36.7 C (98 F) 11/20/2017 12:10 PM ELECTRICIAN HELPER Respiratory Rate 16 11/20/2017 12:45 PM ELECTRICIAN HELPER Oxygen Saturation 95% 11/20/2017 12:45 PM ELECTRICIAN HELPER Inhaled Oxygen Concentration - - Weight 47.6 kg (105 lb) 12/03/2017 9:33 AM ELECTRICIAN HELPER Height 157.5 cm (5' 2 ) 12/03/2017 9:33 AM ELECTRICIAN HELPER Body Mass Index 19.2 12/03/2017 9:33 AM ELECTRICIAN HELPER Plan of Treatment Not on file Care Teams Document Imaging Manager Relationship Specialty Start Date End Date Rachid Baca MD [address] [facility] [address] [place] [address] PCP - General 01/15/17
--- OUTSIDE RECORDS SUMMARY | 2024-12-09 06:40 | XMS_ITS | Referral Summary ---
Author Organization [facility] Medical [facility] [address] [place] [id number] Care Team Providers Care Clinical Biostatistician Name Role Phone Rachid Baca MD Primary Care Provider + [phone] Allergies No known active allergies Medications acetaminophen [...] (12/01/2019): Added automatically from request for surgery [id number] Bladder mass 05/19/2019 Overview (05/19/2019): Added automatically from request for surgery [id number] Immunizations Immunization Administration Dates Next Due Influenza, Trivalent, High D ose, Split, Preservative Free, Intramuscular 12/20/2019 Social History Tobacco Use Types Packs/Day Years Used Date Smoking Tobacco: Former Cigarettes Q uit: 2014 Smokeless Tobacco: Never Comments:history of 3ppd Alcohol [...] on file Legal Sex Male 7:50 PM LOSS PREVENTION RESEARCH ENGINEER Gender Identity Not on file Sexual Orientation [...] Plan of Treatment Not on file [place] [address] [place] [address] MEDICARE [facility] Address: [address] [address] [place] [address] [facility] MDCR HMO REF [facility] MDCR HMO REF [facility] MED[facility] Address: [address] [address] [place] [address] Advance Directives For more information, please contact: [phone] * Full Code (Latest Code Status on File) Date Activated Date Inactivated Comments 12/19/2019 2:33 PM 12/20/2019 6:35 PM Care Teams Clinical Biostatistician Relationship Specialty Start Date End Date Rachid Baca MD [address] [place] [address] PCP - General Family Medicine 11/14/19
[2024-12-09 07:07] LABS: Estimated Glomerular Filt Rate > 60
== END 2024-12-09 06:38 | disposition home or self-care (01) ==
PROVIDERS: PCP Emergency Medicine; Visit Provider Emergency Medicine
DX: K40.20 Bilateral inguinal hernia, without obstruction or gangrene, not specified as recurrent (principal)
CPT/HCPCS: 74177; Q9967